=== PATIENT | female | born 1985 | race Two or more races ===

== ENCOUNTER 2018-03-03 23:06 | Emergency (ER) | payer OTHER ==
[~2018-03-03] VITALS: Ht 165.1 cm; Wt 72.6 kg
--- NOTE | 2018-03-03 23:30 | NUR ---
Pt came in with , c/o vaginal bleeding which started today, stating her pad is soaked heavily with blood and some watery-like fluid. 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 Pt is A,AO, moves all extremities without difficulty, on RA.Seen by MD with orders, labs drawn, urine sample collected and sent.
--- NOTE | 2018-03-03 23:54 | NUR ---
Pelvic US in progress. Pt's at bedside.
[2018-03-04 00:03] LABS: BASOPHILS % (AUTO) 0.4 % (0.0-2.0); EOSINOPHILS % (AUTO) 0.6 % (0.0-6.0); HEMATOCRIT 37 % (33-45); HEMOGLOBIN 12.7 g/dL (11.5-14.8); LYMPHOCYTES % (AUTO) 21.7 % (20.0-44.0); MEAN CORPUSCULAR HGB CONC 34 g/dl (31.0-36.0); MEAN CORPUSCULAR VOLUME 89 fL (82-100); MONOCYTES # (AUTO) 0.6 /CMM (0.1-1.30); MONOCYTES % (AUTO) 6.7 % (2.0-12.0); NEUTROPHILS # (AUTO) 6.6 /CMM (1.8-8.9); NEUTROPHILS % (AUTO) 70.6 % (43.0-81.0); PLATELET COUNT (AUTO) 206 /CMM (150-450); WHITE BLOOD COUNT (AUTO) 9.3 K/uL (4.3-11.0)
[2018-03-04 00:15] LABS: CALCIUM, SERUM 8.4 mg/dL (8.5-10.1); CREATININE 0.7 mg/dL (0.6-1.3); POTASSIUM 4.3 mmol/L (3.5-5.1)
--- NOTE | 2018-03-04 00:20 | NUR ---
"PT O POSITIVE AND NO NEED FOR RHOGUM" ROSANA SMITH NOTIFIED.
[2018-03-04 00:28] LABS: APPEARANCE,URINE CLEAR (CLEAR); BILIRUBIN,URINE NEGATIVE (NEGATIVE); BLOOD, URINE 2+ Ery/uL (NEGATIVE); COLOR,URINE YELLOW (YELLOW); KETONES,URINE NEGATIVE (NEGATIVE); LEUKOCYTE ESTERASE ,URINE NEGATIVE (NEGATIVE); NITRITE, URINE NEGATIVE (NEGATIVE); PROTEIN,URINE NEGATIVE (NEGATIVE); UGLUCOSE NEGATIVE (NEGATIVE); UROBILINOGEN,URINE 0.2 EU/dL (0.2)
[2018-03-04 00:31] LABS: BACTERIA,URINE Few /HPF (None Seen); SQUAMOUS EPITHELIAL CELL,UR Few /HPF (None Seen); WBC,URINE 0-2 /HPF (0-3)
--- NOTE | 2018-03-04 00:40 | NUR ---
Pt ambulated to the rest room, in no distress.
--- NOTE | 2018-03-04 00:50 | NUR ---
INCOME AUDITOR at educating the pt and regarding condition based on US result. Pt's questions answered and clarified by INCOME AUDITOR. Will reinforce teachings.
--- NOTE | 2018-03-04 01:00 | NUR ---
Patient discharged to home in stable condition. Written and verbal after care instructions given. Patient verbalizes understanding of instruction. Pt ambulatory with a steady gait.VSS
[2018-03-04 01:28] VITALS: BP 141/85
== END 2018-03-04 01:00 | disposition home or self-care (01) ==
LOC: ER 23:11
DX: O20.0 Threatened abortion (principal); O34.32 Maternal care for cervical incompetence, second trimester; Z3A.14 14 weeks gestation of pregnancy
CPT/HCPCS: 36415 ×2; 76805; 80048; 81001; 84702; 85025; 85730; 99284; A4606; Z7610; 81000-TC